=== PATIENT | female | born 1975 | race Caucasian/White ===

== ENCOUNTER 2019-06-13 11:00 | Outpatient (CLI) | payer MEDICARE ==
[2011-10-15 09:03] VITALS: BMI 32.9
== END 2019-06-13 12:00 | disposition home or self-care (01) ==
LOC: D.MAMMO 11:00
PROVIDERS: ATTEND Registered Nurse Emergency
DX: R92.8 Other abnormal and inconclusive findings on diagnostic imaging of breast (principal)

== ENCOUNTER → 2019-12-12 12:32 | Outpatient (CLI) | payer MEDICARE ==
[2011-10-15 09:03] VITALS: BMI 32.9
== END | disposition home or self-care (01) ==
LOC: D.HCCECHO 12:32
PROVIDERS: ATTEND Internal Medicine Cardiovascular Disease
DX: R00.2 Palpitations (principal)